=== PATIENT | male | born 1950 | race Caucasian/White ===

== ENCOUNTER 2016-05-01 20:39 | Emergency (ER) | payer OTHER ==
[~2016-05-01] VITALS: Ht 167.6 cm; Wt 127.2 kg
[~2016-05-01 20:39] MED LIST: ACID CONTROL20 MG PO; ALEVE220 MG PO; ALPRAZOLAM0.5 MG PO; ANTIVERT25 MG PO; ASPIRIN E.C.81 M1 PO; AUGMENTIN875 MG PO; BACTRIM,SEPT1 TABLET PO; BENTYL10 MG PO; BONINE25 MG PO; CLINDAMYCIN HC300 MG PO; CLONIDINE HCL0.1 MG PO; COLACE100 MG PO; COREG12.5 M1 PO; COREG25 M1 PO; DIABETA,MICRON2.5 MG PO; DILTIAZEM ER180 M2 PO; DULCOLAX5 MG PO; EPIPEN ADU0.3 MG/0.3 IM; FIBER THERAPY0.52 GM PO; GLUCOPHAGE XR,500 MG PO; LASIX40 MG PO; LIDOCAINE20 MG/1 M5 PO; MEDROL DOSEPAK4 MG PO; METFORMIN HCL500 MG PO; Metamucil Capsule PO; NAPROSYN500 MG PO; NAPROXEN SODIU500 MG PO; NASAL SPRAY NS; NITROQUICK0.3 MG SL; NORCO 5/3251 TABLET PO; OMEPRAZOLE20 M2 PO; OMEPRAZOLE40 M1 PO; PENTOXIFYLLINE400 MG PO; PERCOCET 5/31 TABLET PO; PERCOCET 7.51 TABLET PO; PRAVACHOL40 MG PO; PROAIR HFA8.5 GM IH; PROTONIX40 MG PO; RANITIDINE HCL150 MG PO; SPIRONOLACTONE50 MG PO; STOOL SOFTENER1 EAC2 PO; STOOL SOFTENER100 MG PO; Senokot S,Pericolace PO; THERAGRAN1 TABLET PO; TRAMADOL HCL50 MG PO; XANAX0.5 MG PO; ZESTRIL,PRINIVI10 MG PO; ZYRTEC10 M1 PO; Zyrtec PO
[2016-05-01 21:35] LABS: CHLORIDE 102 mEq/L (99-109); POTASSIUM 4.3 mEq/L (3.7-5.4); SODIUM 139 mEq/L (136-147)
[2016-05-01 21:37] LABS: GLUCOSE 153 mg/dL (70-99)
[2016-05-01 21:39] LABS: ANION GAP 10 MEQ/L (2-14)
[2016-05-01 21:41] LABS: GFR ESTIMATE (CALCULATED) > 59 mL/min/
[2016-05-01 21:42] LABS: UREA NITROGEN (BUN) 16 mg/dL (9-23)
[2016-05-01 21:47] LABS: MCH 30.3 PG (29.0-34.0); MCHC 34.5 G/DL (30.0-36.0); MCV 87.8 FL (86-99); MEAN PLAT.VOLUME 12.2 uM^3 (9.0-12.4); PLATELET COUNT 148 K/uL (156-360); RBC DIS.WIDTH-CV 12.7 % (11.8-14.6); RBC DIS.WIDTH-SD 39.8 % (39-53); RED BLOOD COUNT 4.33 M/uL (4.00-5.50); TROP-I INTERPRETATION NEGATIVE; TROPONIN-I < 0.01 ng/mL (0.0-0.30); WHITE BLOOD COUNT 6.8 K/uL (4.1-10.2)
[2016-05-01] MEDS ORDERED: AEROECLIPSE1 EACH MC (22:59)
[2016-05-01] MEDS ORDERED: ALBUTEROL2.5 MG/0.5 IH (22:59)
[2016-05-01] MEDS ORDERED: ZITHROMAX250 MG PO (23:00)
[2016-05-01] MEDS ORDERED: PREDNISONE20 MG PO (23:00)
[2016-05-01 23:21] VITALS: BP 165/78
== END 2016-05-01 23:21 | disposition home or self-care (01) ==
LOC: EME 20:39
DX: J44.1 Chronic obstructive pulmonary disease with (acute) exacerbation (principal); J40 Bronchitis, not specified as acute or chronic; I10 Essential (primary) hypertension; E11.9 Type 2 diabetes mellitus without complications; Z79.82 Long term (current) use of aspirin; F17.200 Nicotine dependence, unspecified, uncomplicated; Z71.6 Tobacco abuse counseling
CPT/HCPCS: 71020; 80048; 84484; 85027; 93005; 94640; 99281; 99284; J2930

== ENCOUNTER 2016-06-10 22:56 | Emergency (ER) | payer OTHER ==
[~2016-06-10] VITALS: Ht 167.6 cm; Wt 131.0 kg
[~2016-06-10 22:56] MED LIST changes: +AEROECLIPSE1 EACH MC; +ALBUTEROL2.5 MG/0.5 IH; +PREDNISONE20 MG PO; +ZITHROMAX250 MG PO
[2016-06-11] MEDS ORDERED: PREDNISONE20 MG PO (00:43)
[2016-06-11] MEDS ORDERED: PEPCID20 MG PO (00:43)
[2016-06-11 01:17] VITALS: BP 158/93
== END 2016-06-11 01:17 | disposition home or self-care (01) ==
LOC: EME 22:56
DX: T78.40XA Allergy, unspecified, initial encounter (principal); E11.9 Type 2 diabetes mellitus without complications
CPT/HCPCS: 99281; 99284; J7512

== ENCOUNTER 2016-06-14 20:15 | Observation (INO) | payer OTHER ==
[~2016-06-14] VITALS: Ht 167.6 cm; Wt 131.1 kg
[~2016-06-14 20:15] MED LIST changes: +PEPCID20 MG PO
[2016-06-14 20:43] LABS: HEMATOCRIT 37.8 % (38.0-50.0); MCH 30.6 PG (29.0-34.0); MCHC 34.9 G/DL (30.0-36.0); MCV 87.7 FL (86-99); MEAN PLAT.VOLUME 11.4 uM^3 (9.0-12.4); PLATELET COUNT 149 K/uL (156-360); RBC DIS.WIDTH-CV 13.5 % (11.8-14.6); RBC DIS.WIDTH-SD 42.1 % (39-53); RED BLOOD COUNT 4.31 M/uL (4.00-5.50); WHITE BLOOD COUNT 6.3 K/uL (4.1-10.2)
[2016-06-14 20:55] LABS: CHLORIDE 105 mEq/L (99-109); POTASSIUM 4.5 mEq/L (3.7-5.4); SODIUM 141 mEq/L (136-147)
[2016-06-14 20:56] LABS: GLUCOSE 207 mg/dL (70-99)
[2016-06-14 20:58] LABS: ANION GAP 12 MEQ/L (2-14)
[2016-06-14 21:00] LABS: GFR ESTIMATE (CALCULATED) > 59 mL/min/
[2016-06-14 21:01] LABS: UREA NITROGEN (BUN) 16 mg/dL (9-23)
[2016-06-14 21:08] LABS: TROP-I INTERPRETATION NEGATIVE; TROPONIN-I < 0.01 ng/mL (0.0-0.30)
[2016-06-14] MEDS ORDERED: PROVENTIL,2.5 MG/3 M IH (22:45)
[2016-06-14] MEDS ORDERED: LO-DOSE ASPIRIN81 M1 PO (22:45)
[2016-06-14] MEDS ORDERED: INCRUSE ELLI62.5 MCG IH (22:47)
[2016-06-15 00:09] VITALS: BP 147/65
[2016-06-15 03:00] LABS: TROP-I INTERPRETATION NEGATIVE; TROPONIN-I < 0.01 ng/mL (0.0-0.30)
[2016-06-15 04:00] VITALS: BP 174/80
[2016-06-15 08:05] VITALS: BP 167/80
[2016-06-15 09:42] LABS: TROP-I INTERPRETATION NEGATIVE; TROPONIN-I < 0.01 ng/mL (0.0-0.30)
[2016-06-15 11:30] VITALS: BP 141/79
== END 2016-06-15 14:49 | disposition home or self-care (01) ==
LOC: EME → EDBD 20:15 → EDOF 21:44 → 5WEST 23:59
PROVIDERS: Physician Assistant
DX: R07.9 Chest pain, unspecified (principal); I10 Essential (primary) hypertension; E11.9 Type 2 diabetes mellitus without complications; J44.9 Chronic obstructive pulmonary disease, unspecified; E66.01 Morbid (severe) obesity due to excess calories; Z68.42 Body mass index [BMI] 45.0-49.9, adult; K21.9 Gastro-esophageal reflux disease without esophagitis
CPT/HCPCS: 71020; 80048; 84484; 85027; 93005; 94640; 99281; 99284; G0378; J1650

== ENCOUNTER 2016-09-15 08:37 | Emergency (ER) | payer OTHER ==
[~2016-09-15] VITALS: Ht 167.6 cm; Wt 127.0 kg
[~2016-09-15 08:37] MED LIST changes: +INCRUSE ELLI62.5 MCG IH; +LO-DOSE ASPIRIN81 M1 PO; +PROVENTIL,2.5 MG/3 M IH
[2016-09-15] MEDS ORDERED: NAPROSYN500 MG PO (11:23)
[2016-09-15 11:46] VITALS: BP 146/75
== END 2016-09-15 12:06 | disposition home or self-care (01) ==
LOC: EME 08:37
DX: M17.12 Unilateral primary osteoarthritis, left knee (principal); M25.562 Pain in left knee; Z74.09 Other reduced mobility; J45.909 Unspecified asthma, uncomplicated; E11.9 Type 2 diabetes mellitus without complications; J44.9 Chronic obstructive pulmonary disease, unspecified; I10 Essential (primary) hypertension; E78.5 Hyperlipidemia, unspecified; I25.2 Old myocardial infarction; K21.9 Gastro-esophageal reflux disease without esophagitis; Z79.84 Long term (current) use of oral hypoglycemic drugs; Z79.82 Long term (current) use of aspirin; Z87.891 Personal history of nicotine dependence
CPT/HCPCS: 73564; 76882; 99281; 99284; J1885

== ENCOUNTER 2016-10-14 15:48 | Emergency (ER) | payer OTHER ==
[~2016-10-14] VITALS: Ht 167.6 cm; Wt 128.0 kg
[2016-10-14 18:14] VITALS: BP 169/81
== END 2016-10-14 18:14 | disposition home or self-care (01) ==
LOC: EME 15:48
DX: I10 Essential (primary) hypertension (principal); R55 Syncope and collapse; K21.9 Gastro-esophageal reflux disease without esophagitis; I11.0 Hypertensive heart disease with heart failure; I50.9 Heart failure, unspecified; J44.9 Chronic obstructive pulmonary disease, unspecified; E78.5 Hyperlipidemia, unspecified; E11.9 Type 2 diabetes mellitus without complications; I25.2 Old myocardial infarction; Z90.49 Acquired absence of other specified parts of digestive tract; Z79.82 Long term (current) use of aspirin; Z79.84 Long term (current) use of oral hypoglycemic drugs; Z87.891 Personal history of nicotine dependence
CPT/HCPCS: 93005; 99281; 99283

== ENCOUNTER 2017-02-25 07:56 | Emergency (ER) | payer OTHER ==
[~2017-02-25] VITALS: Ht 167.6 cm; Wt 131.5 kg
[2017-02-25 09:08] LABS: MCH 30.3 PG (29.0-34.0); MCHC 35.1 G/DL (30.0-36.0); MCV 86.3 FL (86-99); PLATELET COUNT 140 K/uL (156-360); RBC DIS.WIDTH-CV 12.4 % (11.8-14.6); RBC DIS.WIDTH-SD 39.4 % (39-53); RED BLOOD COUNT 4.75 M/uL (4.00-5.50); WHITE BLOOD COUNT 4.8 K/uL (4.1-10.2)
[2017-02-25 09:19] LABS: CHLORIDE 103 mEq/L (99-109); POTASSIUM 4.3 mEq/L (3.7-5.4); SODIUM 140 mEq/L (136-147)
[2017-02-25 09:22] LABS: GLUCOSE 148 mg/dL (70-99)
[2017-02-25 09:23] LABS: ANION GAP 9 MEQ/L (2-14)
[2017-02-25 09:24] LABS: TOTAL BILIRUBIN 0.5 mg/dL (0.0-1.0)
[2017-02-25 09:25] LABS: ALKALINE PHOSPHATASE 102 IU/L (3-129); GFR ESTIMATE (CALCULATED) > 59 mL/min/
[2017-02-25 09:26] LABS: UREA NITROGEN (BUN) 14 mg/dL (9-23)
[2017-02-25 09:31] LABS: TROP-I INTERPRETATION NEGATIVE; TROPONIN-I < 0.01 ng/mL (0.0-0.30)
[2017-02-25] MEDS ORDERED: PREDNISONE20 MG PO (10:47)
[2017-02-25 11:08] VITALS: BP 108/101
== END 2017-02-25 11:12 | disposition home or self-care (01) ==
LOC: EME 07:56
PROVIDERS: Nurse Practitioner Family
DX: J44.1 Chronic obstructive pulmonary disease with (acute) exacerbation (principal); J06.9 Acute upper respiratory infection, unspecified; I11.0 Hypertensive heart disease with heart failure; I50.9 Heart failure, unspecified; K21.9 Gastro-esophageal reflux disease without esophagitis; E78.5 Hyperlipidemia, unspecified; E11.9 Type 2 diabetes mellitus without complications; I25.2 Old myocardial infarction; F32.9 Major depressive disorder, single episode, unspecified; Z79.84 Long term (current) use of oral hypoglycemic drugs; Z79.82 Long term (current) use of aspirin; Z72.0 Tobacco use; Z88.8 Allergy status to other drugs, medicaments and biological substances
CPT/HCPCS: 71020; 80053; 83880; 84484; 85027; 93005; 99281; 99284; J7644

== ENCOUNTER 2017-10-24 18:26 | Emergency (ER) | payer OTHER ==
[~2017-10-24] VITALS: Ht 167.6 cm; Wt 130.2 kg
[2017-10-24] MEDS ORDERED: NORCO 5/3251 TABLET PO (21:57)
[2017-10-24 22:10] VITALS: BP 153/79
== END 2017-10-24 22:11 | disposition home or self-care (01) ==
LOC: EME 18:26
DX: S83.91XA Sprain of unspecified site of right knee, initial encounter (principal); X50.1XXA Overexertion from prolonged static or awkward postures, initial encounter; W01.0XXA Fall on same level from slipping, tripping and stumbling without subsequent striking against object, initial encounter; Y93.H2 Activity, gardening and landscaping; I11.0 Hypertensive heart disease with heart failure; I50.9 Heart failure, unspecified; I25.2 Old myocardial infarction; J44.9 Chronic obstructive pulmonary disease, unspecified; E11.9 Type 2 diabetes mellitus without complications; Z79.84 Long term (current) use of oral hypoglycemic drugs; Z79.82 Long term (current) use of aspirin; Z87.891 Personal history of nicotine dependence
CPT/HCPCS: 73564; 99281; 99284